=== PATIENT | female | born 1990 | race Caucasian/White ===

== ENCOUNTER 2017-08-27 10:48 | Emergency (ER) | payer OTHER ==
[~2017-08-27] VITALS: Ht 170.2 cm; Wt 99.8 kg
[2017-08-27 11:10] VITALS: BP 129/78
--- NOTE | 2017-08-27 11:13 | NUR ---
Patient ambulated to bed 04.
--- NOTE | 2017-08-27 11:15 | NUR ---
PT PRESENTS TO ER FOR EVALUATION OF FACIAL NUMBNESS AND HEADACHE SINCE LAST NOC. DENIES N/V/D; SKIN IS PINK/WARM/DRY; AAOX4 WITH EVEN AND STEADY GAIT; LUNGS CLEAR BL; HR EVEN AND REGULAR; PT DENIES ANY FEVER, CP, SOB, OR COUGH AT THIS TIME; PATIENT STATES PAIN OF 8/10 AT THIS TIME;PATIENT POSITIONED FOR COMFORT; HOB ELEVATED; BEDRAILS UP X2; BED DOWN. ALL MONITORS IN PLACED;ER MD MADE AWARE OF PT STATUS.
--- NOTE | 2017-08-27 11:20 | NUR ---
Dr. Gonzales evaluating patient at bedside.
[2017-08-27] MEDS ORDERED: NACL 0.9% 1,000 ML IV ONE (11:30)
--- NOTE | 2017-08-27 11:57 | NUR ---
Calvin gordon in ED - 08/27/17 at 1204 by LUCIEN Pt taken to CT via [facility].
--- NOTE | 2017-08-27 11:58 | NUR ---
WENT TO CT SCAN ACCOMPANIED BY TECH.
--- NOTE | 2017-08-27 12:03 | NUR ---
Patient back from CT via [facility].
[2017-08-27 12:14] LABS: BASOPHILS # (AUTO) 0.3 K/uL (0.00-0.22); BASOPHILS % (AUTO) 3.1 % (0.0-2.0); EOSINOPHILS # (AUTO) 0.2 K/uL (0-0.4); EOSINOPHILS % (AUTO) 2.3 % (0.0-4.0); HEMATOCRIT 40.9 % (36-48); HEMOGLOBIN 13.9 g/dL (12.0-16.0); LYMPHOCYTES # (AUTO) 1.1 K/uL (2.5-16.5); LYMPHOCYTES % (AUTO) 11.4 % (20.5-51.1); MEAN CORPUSCULAR HEMOGLOBIN 32 pg (27-31); MEAN CORPUSCULAR HGB CONC 34 g/dL (33-37); MEAN CORPUSCULAR VOLUME 96 fL (80-94); MONOCYTES # (AUTO) 0.6 K/uL (0.8-1.0); MONOCYTES % (AUTO) 6.2 % (1.7-9.3); NEUTROPHILS # (AUTO) 7.7 K/uL (1.8-7.7); PLATELET COUNT (AUTO) 259 K/uL (140-450); RED BLOOD CELL COUNT(AUTO) 4.28 MIL/uL (4.20-5.40); RED CELL DISTRIBUTION WIDTH 11.9 % (11.6-13.7); WHITE BLOOD COUNT (AUTO) 9.9 K/uL (4.8-10.8)
[2017-08-27 12:24] LABS: BILIRUBIN,URINE NEGATIVE (NEGATIVE); BLOOD, URINE NEGATIVE (NEGATIVE); COLOR,URINE YELLOW (YELLOW); LEUKOCYTE ESTERASE ,URINE NEGATIVE (NEGATIVE); NITRITE, URINE NEGATIVE (NEGATIVE); UGLUCOSE NEGATIVE (NEGATIVE)
[2017-08-27 13:12] LABS: ANION GAP 12.4 (8-16); CARBON DIOXIDE 25.1 mmol/L (21-32); CREATININE 0.7 mg/dL (0.6-1.3); POTASSIUM 3.5 mmol/L (3.5-5.1)
[2017-08-27 13:26] LABS: ALBUMIN 3.5 g/dL (3.4-5.0); THYROID STIMULATING HORMONE 0.62 uIU/mL (0.34-3.74); TOTAL BILIRUBIN 0.3 mg/dL (0.0-1.0)
[2017-08-27 13:28] LABS: APPEARANCE,URINE HAZY (CLEAR)
[2017-08-27 13:30] LABS: RBC,URINE 0-5 (RARE) /HPF (0-5); WBC,URINE 0-5 (RARE) /HPF (0-5)
[2017-08-27 13:31] LABS: URINE AMORPHOUS URATE 2+ /HPF (None Seen)
--- NOTE | 2017-08-27 13:34 | NUR ---
PT SLEEPING;SISTER AT BEDSIDE;NO ACUTE DISTRESS NOTED;WILL CONTINUE TO MONITOR PT.
--- NOTE | 2017-08-27 14:26 | NUR ---
Patient discharged with v/s stable. Written and verbal after care instructions given and explained. Patient verbalized understanding. Ambulatory with steady gait. All questions addressed prior to discharge. Advised to follow up with PMD.
[2017-08-27 14:27] VITALS: BP 110/65
== END 2017-08-27 14:26 | disposition home or self-care (01) ==
LOC: MED 10:48
DX: E86.0 Dehydration (principal); R94.31 Abnormal electrocardiogram [ECG] [EKG]; F17.210 Nicotine dependence, cigarettes, uncomplicated; F12.90 Cannabis use, unspecified, uncomplicated; Z90.49 Acquired absence of other specified parts of digestive tract
CPT/HCPCS: 36415; 70450; 80053; 81001; 81025; 84443; 84484; 85025; 93005; 96360; 99285; J7030